=== PATIENT | female | born 1940 | race Caucasian/White ===

== ENCOUNTER 2017-12-11 14:44 | Inpatient (IN) | payer OTHER, MEDICAID ==
[~2017-12-11] VITALS: Ht 162.6 cm; Wt 69.0 kg
[2017-12-11 14:45] VITALS: BP 130/75
--- NOTE | 2017-12-11 14:48 | NUR ---
PATIENT PRESENTS TO ED WITH C/O LT. UPPER CHEST PACER MOVABLE WHEN PALPATED.IMPLANTED X10 YRS. AGO. NO OTHER COMPLAINTS. HX: TIA,ESRD,DIALYSIS NOT DONE TODAY. RT. ALEXEI CATH. FOR DIALYSIS.,ID,AT. FIB,ANEMIA,DM. PATIENT FROM [facility]. DENIES N/V/D; SKIN IS PINK/WARM/DRY; AAOX4 WITH EVEN AND STEADY GAIT; LUNGS CLEAR BL; HR EVEN AND REGULAR; PT DENIES ANY FEVER, CP, SOB, OR COUGH AT THIS TIME; PATIENT STATES PAIN OF 0/10 AT THIS TIME;PATIENT POSITIONED FOR COMFORT; HOB ELEVATED; BEDRAILS UP X2; BED DOWN. ER MD MADE AWARE OF PT STATUS.
[2017-12-11] MEDS ORDERED: SODIUM CHLORIDE FLUSH 10 ML SYR IVF ONE (16:20)
--- NOTE | 2017-12-11 16:34 | NUR ---
PT RESTING;NO ACUTE DISTRESS NOTED;WILL CONTINUE TO MONITOR PT.
[2017-12-11] MEDS ORDERED: LORazepam 2 MG/ML VIAL IVP ONE (16:55)
[2017-12-11 17:07] LABS: BASOPHILS % (AUTO) 0.4 % (0.0-2.0); EOSINOPHILS # (AUTO) 0.2 K/uL (0-0.4); EOSINOPHILS % (AUTO) 3.1 % (0.0-4.0); HEMOGLOBIN 12.5 g/dL (12.0-16.0); LYMPHOCYTES # (AUTO) 0.9 K/uL (2.5-16.5); LYMPHOCYTES % (AUTO) 15.9 % (20.5-51.1); MEAN CORPUSCULAR HEMOGLOBIN 29 pg (27-31); MEAN CORPUSCULAR HGB CONC 31 g/dL (33-37); MEAN CORPUSCULAR VOLUME 93.4 fL (80-94); MONOCYTES # (AUTO) 0.4 K/uL (0.8-1.0); MONOCYTES % (AUTO) 7.7 % (1.7-9.3); NEUTROPHILS % (AUTO) 72.9 % (42.2-75.2); PLATELET COUNT (AUTO) 198 K/uL (140-450); RED BLOOD CELL COUNT(AUTO) 4.28 MIL/uL (4.20-5.40); RED CELL DISTRIBUTION WIDTH 18.2 % (11.6-13.7); WHITE BLOOD COUNT (AUTO) 5.5 K/uL (4.8-10.8)
[2017-12-11 17:30] LABS: ANION GAP 12.8 (8-16); CARBON DIOXIDE 28.4 mmol/L (21-32); CHLORIDE 97 mmol/L (98-107); CREATININE 3.4 mg/dL (0.6-1.3); GLUCOSE 131 mg/dL (74-106); POTASSIUM 4.2 mmol/L (3.5-5.1); SODIUM SERUM 134 mmol/L (136-145); UREA NITROGEN, BLOOD 40 mg/dL (7-18)
[2017-12-11 17:33] LABS: PROTHROMBIN TIME 11.4 secs (10.8-13.4)
[2017-12-11 17:36] LABS: ALBUMIN 3.1 g/dL (3.4-5.0); ASPARTATE AMINOTRANSFERASE 12 U/L (15-37); TOTAL BILIRUBIN 0.8 mg/dL (0.0-1.0)
--- NOTE | 2017-12-11 18:13 | NUR ---
PT'S DAUGHTER CALLED;INFORMED HER ABOUT HER MOTHER'S CONDITION.
[2017-12-11] MEDS ORDERED: NACL 0.9% 500 ML IV SCH (18:28)
[2017-12-11 18:30] LABS: APPEARANCE,URINE CLEAR (CLEAR); BILIRUBIN,URINE NEGATIVE (NEGATIVE); BLOOD, URINE NEGATIVE (NEGATIVE); COLOR,URINE YELLOW (YELLOW); LEUKOCYTE ESTERASE ,URINE NEGATIVE (NEGATIVE); NITRITE, URINE NEGATIVE (NEGATIVE); UGLUCOSE NEGATIVE (NEGATIVE)
[2017-12-11] MEDS ORDERED: ACETAMINOPHEN 325 MG TAB PO PRN (18:30)
[2017-12-11] MEDS ORDERED: MORPHINE SULFATE 2 MG/ML SYR IVP PRN (18:30)
[2017-12-11] MEDS ORDERED: LORazepam 2 MG/ML VIAL IM/IVP PRN (18:30)
[2017-12-11] MEDS ORDERED: HYDROcodone/APAP 5/325 MG 1 TAB TAB PO PRN (18:30)
[2017-12-11] MEDS ORDERED: ONDANSETRON 4 MG/2 ML VIAL IM/IVP PRN (18:30)
[2017-12-11] MEDS ORDERED: ZOLPIDEM 5 MG TAB PO PRN (18:30)
[2017-12-11 19:50] VITALS: BP 121/71
--- NOTE | 2017-12-11 19:50 | NUR ---
Patient will be admitted to care of DR GRIFFITH. Admited to TELE. Will go to room 119-A. Belongings list completed. Report to ARIAN SAUNDERS.
--- NOTE | 2017-12-11 19:50 | NUR ---
ADMITTED A 77F FROM ER. CAME BY UMANG. AWAKE,ALERT, ORIENTED X4. WITH SLIGHT TRIBAL ON BOTH EARS. ON TELE MONITOR-ST/BBB/WITH PAC. ALSO HAS PACEMAKER. WHICH PT SAID MAYBE DISPLACED. HAS SACROCOCCYGEAL NON BLANCHABLE SKIN AREA AND LT ANDRADE ABRASION WITH DRESSING IN PLACED. ER NURSE TOOK PICTURE AND WILL BRING WHEN MD SIGNED ALREADY. PT IS ON HD ,ACCESS ON THE RT CHEST ALEXEI CATH . DRESSING CLEAN AND INTACT. HAS HL ON THE LT FA#22. FLUSHED WITH NS, CLEAR AND INTACT. PLAN OF CARE DISCUSSED AND PT VERBALIZED UNDERSTANDING. CALL LIGHT PLACED WITHIN EASY REACH. WILL CONITNUE TO MONITOR.
[2017-12-11 20:58] LABS: CHOL/HDL RATIO 2.8 (1-4.5); MAGNESIUM 2.4 mg/dL (1.8-2.4); PHOSPHORUS 4.9 mg/dL (2.5-4.9); THYROID STIMULATING HORMONE 3.74 uIU/mL (0.34-3.74)
--- NOTE | 2017-12-11 22:48 | NUR ---
PT FOR US ABDOMEN. CALLED RADIOLOGY AND SAID TECH STILL BUSY AT THIS TIME. TEST MIGHT BE DONE TOMORROW. WILL FOLLOW UP.
--- NOTE | 2017-12-12 00:10 | NUR ---
VITAL SIGNS TAKEN . STABLE. NO C/O ANY DISCOMFORT NOR PAIN NOTED. WILL CONTINUE TO MONITOR.
[2017-12-12 00:15] VITALS: BP 125/65
--- NOTE | 2017-12-12 02:00 | NUR ---
DR. CARDONA. MADE AWARE ABOUT TH SACRAL NON BLANCHABLE SKIN AND LT LOWER LEG ANDRADE ABRASION. WILL ORDER FNS AND WOUND CARE CONSULT AND TREATMENT.
[2017-12-12 02:16] LABS: BARBITURATE, URINE NEG. ng/ml (NEG <=200); BENZODIAZEPINE, URINE NEG. ng/mL (NEG <=200); CANNABINOID, URINE NEG. ng/mL (NEG <=50); COCAINE, URINE NEG. ng/mL (NEG <=300); OPIATE, URINE NEG. ng/mL (NEG <=2000); PHENCYCLIDINE SCREEN,URINE NEG. ng/mL (NEG <=25)
--- NOTE | 2017-12-12 03:15 | NUR ---
PT REQUESTED FOR SOMETHING TO EAT. HAD 1/2 SANDWICH AND JUICE.
[2017-12-12] MEDS ORDERED: DEXTROSE 50% 50 ML SYR IVP PRN (03:50)
[2017-12-12] MEDS ORDERED: INSULIN LISPRO SLIDING SCALE 100 UNITS/ML VIAL SUBQ PRN (03:50)
[2017-12-12 04:46] VITALS: BP 112/60
[2017-12-12] MEDS ORDERED: ALPOS OP (05:06)
[2017-12-12] MEDS ORDERED: VITD1000 PO (05:06)
[2017-12-12] MEDS ORDERED: LOVA40TA4 PO (05:06)
[2017-12-12] MEDS ORDERED: PANT40EC PO (05:06)
[2017-12-12] MEDS ORDERED: ASPI81EC98 PO (05:06)
[2017-12-12] MEDS ORDERED: XALOS OP (05:06)
[2017-12-12] MEDS ORDERED: FURO-570 PO (05:06)
--- NOTE | 2017-12-12 05:17 | NUR ---
ABLE TO TALKED TO RESIDENT. TO ORDER NEPHRO CONSULT FOR HD .
[2017-12-12] MEDS ORDERED: ALBUTEROL SULFATE/IPRATROPIU 3 ML SOL IH PRN (05:35)
[2017-12-12] MEDS: BLOOD GLUCOSE MONITORING 1 DEV DEV FS SCH ×4 (05:54→20:58)
--- NOTE | 2017-12-12 05:54 | NUR ---
BLOOD SUGAR WAS CHECKED THIS AM RESULT 155. PT REFUSED ANY INSULIN AT THIS TIME.
[2017-12-12] MEDS ORDERED: PANTOPRAZOLE 40 MG TABEC PO SCH (06:30)
--- NOTE | 2017-12-12 07:10 | NUR ---
ENDORSED PT IN STABLE CONDITION TO AM NURSE FOR CONTINUITY OF CARE.
--- NOTE | 2017-12-12 07:11 | NUR ---
RECEIVED REPORT FROM FARM IMPLEMENT ENGINE MECHANIC RN. PATIENT IS HARD OF HEARING, BUT AAOX4. EYES CLOSED AT THIS TIME BUT RESPONDS WHEN SPOKEN TO. HAS IF TO THE LEFT FA 22G, INFUSING NS AT 10 ML/HR. SITE IS CLEAN, DRY, PATENT AND INTACT. HAS ALEXEI CATH ON THE RIGHT UPPER CHEST. PATIENT IS CURRENTLY ON BEDREST. FALL RISK PRECAUTIONS IN PLACE. DISCUSSED PLAN OF CARE WITH PATIENT AND SHE VERBALIZED UNDERSTANDING. BED IN LOWEST POSITION, SIDE RAILS UP X2, CALL LIGHT WITHIN REACH. WILL CONTINUE TO MONITOR.
[2017-12-12 08:00] VITALS: BP 117/77
[2017-12-12] MEDS ORDERED: NON-FORMULARY ITEM (Lovastatin 40 MG) PO SCH (08:00)
[2017-12-12] MEDS: FUROSEMIDE 40 MG TAB PO SCH (08:29)
[2017-12-12] MEDS: ECOTRIN 81 MG TABEC PO SCH (08:29)
[2017-12-12] MEDS: CHOLECALCIFEROL 1,000 IU TAB PO SCH (08:29)
--- NOTE | 2017-12-12 08:36 | NUR ---
PATIENTS BLOOD SUGAR WAS 124, SHE STATED THAT SHE DOESN'T WANT THE LANTUS AT THIS TIME BECAUSE SHE FEELS LIKE HER BLOOD SUGAR IS TOO LOW.
[2017-12-12] MEDS: INSULIN LANTUS 100 UNITS/ML 10 ML VIAL SUBQ SCH (08:37)
[2017-12-12] MEDS ORDERED: Z-GUARD PASTE TP PRN (09:00)
[2017-12-12] MEDS: Z-GUARD PASTE TP SCH (09:46)
--- NOTE | 2017-12-12 10:19 | NUR ---
PATIENT HAS BEEN SCREENED AND CATEGORIZED HIGH NUTRITION RISK. PATIENT WILL BE SEEN WITHIN 1-2 DAYS OF ADMISSION. 12/12/17 12/13/[address]
[2017-12-12 10:54] LABS: BASOPHILS % (AUTO) 0.7 % (0.0-2.0); EOSINOPHILS # (AUTO) 0.2 K/uL (0-0.4); HEMATOCRIT 38.8 % (36-48); HEMOGLOBIN 12.3 g/dL (12.0-16.0); LYMPHOCYTES # (AUTO) 0.9 K/uL (2.5-16.5); LYMPHOCYTES % (AUTO) 15.5 % (20.5-51.1); MEAN CORPUSCULAR HEMOGLOBIN 30 pg (27-31); MEAN CORPUSCULAR HGB CONC 32 g/dL (33-37); MEAN CORPUSCULAR VOLUME 93.6 fL (80-94); MONOCYTES # (AUTO) 0.5 K/uL (0.8-1.0); MONOCYTES % (AUTO) 8.4 % (1.7-9.3); NEUTROPHILS # (AUTO) 4.1 K/uL (1.8-7.7); NEUTROPHILS % (AUTO) 72.4 % (42.2-75.2); PLATELET COUNT (AUTO) 200 K/uL (140-450); RED BLOOD CELL COUNT(AUTO) 4.15 MIL/uL (4.20-5.40); RED CELL DISTRIBUTION WIDTH 17.9 % (11.6-13.7); WHITE BLOOD COUNT (AUTO) 5.6 K/uL (4.8-10.8)
[2017-12-12 12:00] VITALS: BP 139/77
[2017-12-12 12:04] LABS: ANION GAP 13.9 (8-16); CARBON DIOXIDE 27.8 mmol/L (21-32); CHLORIDE 95 mmol/L (98-107); CREATININE 3.6 mg/dL (0.6-1.3); GLUCOSE 147 mg/dL (74-106); POTASSIUM 4.7 mmol/L (3.5-5.1); SODIUM SERUM 132 mmol/L (136-145); UREA NITROGEN, BLOOD 46 mg/dL (7-18)
--- NOTE | 2017-12-12 13:00 | NUR ---
PATIENT ON ROOM AIR, O2 SAT 99%. DENIES SOB. NO HHN INDICATED AT THIS TIME. NO RESPIRATORY DISTRESS NOTED AT THIS TIME. INSTRUCTED PATIENT ON USE OF INCENTIVE SPIROMETER. PATIENT PERFORMED RETURN DEMONSTRATION WITH FAIR EFFORT. WILL CONTINUE TO MONITOR.
[2017-12-12] MEDS: DOCUSATE SODIUM 100 MG GELCAP PO PRN (14:58)
--- NOTE | 2017-12-12 15:43 | NUR ---
Marine Firer Note: Per Cathy from [facility] , patient has been living at their facility since Feb 2017.
--- NOTE | 2017-12-12 15:50 | NUR ---
12/12/17 RD INITIAL ASSESSMENT COMPLETED PLEASE REFER TO NUTRITION ASSESSMENT UNDER CARE ACTIVITY FOR ESTIMATED NUTRITIONAL NEEDS. 1. RECOMMEND CCHO, RENAL, AND CARDIAC DIET, TOLERATED. 2. RECOMMEND MUNIR QD 3. RD TO FOLLOW-UP 3-5 DAYS, MODERATE RISK KIMBERLY BARRERA, RD
[2017-12-12 16:00] VITALS: BP 109/67
[2017-12-12] MEDS ORDERED: GLYCERIN ADULT 1 SUPP RC PRN (16:05)
--- NOTE | 2017-12-12 19:24 | NUR ---
ENDORSED PATIENT TO OCCUPATIONAL THERAPY TECHNICIAN RN FOR CONTINUITY OF CARE. PATIENT IN STABLE CONDITION.
--- NOTE | 2017-12-12 19:25 | NUR ---
RECEIVED PT IN STABLE CONDITION FROM AM NURSE. PT STILL EATING DINNER. NO C/O ANY DISCOMFORT NOR PAIN NOTED. ON BED REST. TELEMETRY PT. WITH IV ACCESS ON THE LT WRIST G#22. CLEAR AND PATENT. ON BEDREST DUE TO GENERALIZED WEAKNESS. HAS RT UPPER CHEST ALEXEI CATHETER FOR HD. FOR DIALYSIS TONIGHT. PT ALREADY SIGNED CONSENT . HAS SACRAL EXCORIATION AND LT LOWER LEG ANDRADE LACERATION WITH DRESSING INTACT. BED ON LOW POSITION. SIDE RAILS UP X2. CALL LIGHT PLACED WITHIN EASY REACH. WILL CONITNUE TO MONITOR.
[2017-12-12 20:00] VITALS: BP 135/60
--- NOTE | 2017-12-12 20:00 | NUR ---
HD NURSE JUST CAME IN TO DO DIALYSIS ON PT. GAVE COPY OF ORDER AND CBC CMP RESULTS. 2 NS IL BAG GIVEN PER HD REQUEST TO BE USE DURING HD.
--- NOTE | 2017-12-12 20:58 | NUR ---
BLOOD SUGAR WAS CHECKED RESULT 161. PT REFUSED TO HAVE ANY INSULIN AT THIS TIME. SHE SAID HER BS TEND TO GO DOWN IN AM. WILL HAVE MD AWARE.
--- NOTE | 2017-12-12 22:00 | NUR ---
HD STILL GOING ON . PT IN STABLE CONDITION.
--- NOTE | 2017-12-12 23:10 | NUR ---
HD JUST FINISHED. OUTPUT 2500 ML PER HD NURSE. PT IN STABLE CONDITION.
[2017-12-13] MEDS: LATANOPROST 0.005% OP 2.5 ML BTL LEFT EYE SCH ×2 (00:02→20:47)
[2017-12-13 00:07] VITALS: BP 129/68
--- NOTE | 2017-12-13 01:30 | NUR ---
MADE ROUNDS. PT ASLEEP. NO S/S OF ANY DISCOMFORT NOR PAIN NOTED.
--- NOTE | 2017-12-13 02:30 | NUR ---
MADE ROUNDS. S;EEPING WELL. NO DISTRESS NOR DISCOMFORT NOTED. WILL CONTINUE TO MONITOR.
--- NOTE | 2017-12-13 04:00 | NUR ---
PT HAD A SMALL AMOUNT SOFT BM AND VOIDED . CLEANED PERINEAL AREA, KEPT DRY AND APPLIED Z GUARD TO SACRAL AREA.
[2017-12-13 04:15] VITALS: BP 113/61
[2017-12-13] MEDS: BLOOD GLUCOSE MONITORING 1 DEV DEV FS SCH ×4 (05:15→20:52)
--- NOTE | 2017-12-13 05:15 | NUR ---
BLOOD SUGAR WAS CHECKED THIS AM RESULT 102.
[2017-12-13 06:26] LABS: T4 (THYROXINE) 7.1 ug/dL (4.5-12.0)
--- NOTE | 2017-12-13 07:10 | NUR ---
ENDORSED PT IN STABLE CONDITION TO AM NURSE FOR CONTINUITY OF CARE.
--- NOTE | 2017-12-13 07:11 | NUR ---
RECEIVED REPORT FROM THE WILDLAND FIREFIGHTER NURSE AT BEDSIDE FOR CONTINUITY OF CARE. PT IS AWAKE AND ORIENTED. INTRODUCED MYSELF AND UPDATED THE BOARD. PT IS HAS HER HEAD COVERED WITH A BLANKET. WILL COME BACK AND ASSESS PT.
[2017-12-13 07:29] LABS: BASOPHILS % (AUTO) 0.8 % (0.0-2.0); EOSINOPHILS # (AUTO) 0.2 K/uL (0-0.4); EOSINOPHILS % (AUTO) 3.9 % (0.0-4.0); HEMATOCRIT 36.2 % (36-48); HEMOGLOBIN 11.5 g/dL (12.0-16.0); LYMPHOCYTES # (AUTO) 0.9 K/uL (2.5-16.5); LYMPHOCYTES % (AUTO) 16.5 % (20.5-51.1); MEAN CORPUSCULAR HEMOGLOBIN 30 pg (27-31); MEAN CORPUSCULAR HGB CONC 32 g/dL (33-37); MEAN CORPUSCULAR VOLUME 93.3 fL (80-94); MONOCYTES # (AUTO) 0.6 K/uL (0.8-1.0); MONOCYTES % (AUTO) 11.5 % (1.7-9.3); NEUTROPHILS # (AUTO) 3.5 K/uL (1.8-7.7); NEUTROPHILS % (AUTO) 67.3 % (42.2-75.2); PLATELET COUNT (AUTO) 194 K/uL (140-450); RED BLOOD CELL COUNT(AUTO) 3.88 MIL/uL (4.20-5.40); RED CELL DISTRIBUTION WIDTH 17.7 % (11.6-13.7); WHITE BLOOD COUNT (AUTO) 5.2 K/uL (4.8-10.8)
--- NOTE | 2017-12-13 07:40 | NUR ---
V/S WITHIN NORMAL RANGE. PT ASKS FOR JUICE. FELT LIKE THER BS WAS TOO LOW. LAST BS CHECK 102 PER FISHING BOAT CAPTAIN NURSE. DRYNESS/EXCORIATION ON SACRAL COCCYX AREA. ZGUARD IS APPLIED. R UPPER CHEST ALEXEI CATH FOR HD. L ANDRADE ABRASION, DRESSING IN PLACE. L WRIST 22G SL. PER MD, PT IS AWAITING CARDIOLOGY CONSULT WITH DR. DA SILVA. ONCE SHE IS CLEARED, SHE CAN BE D/C HOME. MOST LIKELY OVER THE WEEKEND. WILL CONTINUE TO MONITOR PT.
[2017-12-13 07:51] LABS: ANION GAP 14.1 (8-16); CARBON DIOXIDE 27.6 mmol/L (21-32); CHLORIDE 96 mmol/L (98-107); CREATININE 2.6 mg/dL (0.6-1.3); GLUCOSE 107 mg/dL (74-106); POTASSIUM 3.7 mmol/L (3.5-5.1); SODIUM SERUM 134 mmol/L (136-145); UREA NITROGEN, BLOOD 27 mg/dL (7-18)
[2017-12-13 08:00] VITALS: BP 112/69
[2017-12-13 08:10] LABS: MAGNESIUM 1.9 mg/dL (1.8-2.4); PHOSPHORUS 3.9 mg/dL (2.5-4.9)
[2017-12-13] MEDS: ECOTRIN 81 MG TABEC PO SCH (08:44)
[2017-12-13] MEDS: CHOLECALCIFEROL 1,000 IU TAB PO SCH (08:44)
[2017-12-13] MEDS: FUROSEMIDE 40 MG TAB PO SCH (08:44)
[2017-12-13] MEDS: Z-GUARD PASTE TP SCH (08:46)
[2017-12-13] MEDS: INSULIN LANTUS 100 UNITS/ML 10 ML VIAL SUBQ SCH (08:47)
--- NOTE | 2017-12-13 08:49 | NUR ---
ADMINISTERED MORNING MEDS. HELD LANTUS D/T DECREASE IN BS 102. PT ALSO STATED THAT SHE DOES NOT WANT INSULIN WHEN HER BS IS LESS THAN 200. PT TOLERATED WELL. WILL CONTINUE TO MONITOR PT.
--- NOTE | 2017-12-13 09:18 | NUR ---
ADMINISTERED MORNING MEDS. PT TOLERATED WELL. NOW EATING BREAKFAST. NO SIGNS OF DISTRESS. NO COMPLAINTS. DAUGHTER AT BEDSIDE. WILL CONTINUE TO MONITOR PT.
--- NOTE | 2017-12-13 09:22 | NUR ---
Ground Instructor Basic Note: I faxed patient's clinical information to [facility], phone number
--- NOTE | 2017-12-13 11:17 | NUR ---
Transverse Abdominal Muscle Surgeon Note: Per Cathy from [facility], phone number , patient can return to room 123A over weekend after 3pm, accepting physician is , protective services case worker Cici pham. Per protective services case worker Cici, patient is not on isolation.
[2017-12-13] MEDS: BRIMONIDINE TARTRATE 0.2% OP 5 ML BTL LEFT EYE SCH ×2 (11:23→20:47)
--- NOTE | 2017-12-13 11:32 | NUR ---
ADMINISTERED EYE DROP AND GLUCOSE CHECK. BS AT 124. NO COVERAGE NEEDED. PT TOLERATED WELL. WILL CONTINUE TO MONITOR PT.
[2017-12-13 13:53] VITALS: BP 111/57
--- NOTE | 2017-12-13 14:07 | NUR ---
PT SITTING UP IN BED. REMOVED HER LUNCH TRAY. ATE 50% OF HER LUNCH. NO SIGNS OF DISTRESS. RESTING COMFORTABLY. WILL CONTINUE TO MONITOR PT.
--- NOTE | 2017-12-13 14:43 | NUR ---
PT REQUESTED A BATH BATH. INSPECTOR PLATING WILL GIVE HER ONE. PT PULLED UP IN BED AND CHANGED PAD. PT URINATED.
[2017-12-13 16:00] VITALS: BP_SYST 110; BP_SYST 111; BP_DIAS 63; BP_DIAS 66
--- NOTE | 2017-12-13 16:30 | NUR ---
DR. DA SILVA HERE TO SEE PT FOR CARDIOLOGY CONSULT.
--- NOTE | 2017-12-13 19:15 | NUR ---
ENDORSE PT TO THE RETORT ENGINEER NURSE AT BEDSIDE FOR CONTINUITY OF CARE. PT IS IN STABLE CONDITION. PAGED YUSRA, DIALYSIS NURSE FOR POSSIBLE HD TONIGHT. PT IS UNCOMFORTABLE AND THERE WAS AN ORDER FOR HD FOR TODAY.
--- NOTE | 2017-12-13 19:16 | NUR ---
RECEIVED PT ON BED, AAOX4, VITAL SIGNS STABLE, ST ON TELE, ASYMPTOMATIC, DENIES ANY PAIN, NO SOB NOTED, RT CHEST ALEXEI CATH IN PLACE, DRESSING DRY AND INTACT, PLAN OF CARE DISCUSSED, SAFETY MEASURES IN PLACE, SIDE RAILS UP AND BED ALARM ON, MAINTAIN ON CONTACT ISOLATION, CALL LIGHT WITHIN REACTION.
--- NOTE | 2017-12-13 19:20 | NUR ---
CALLED YUSRA, HOME HEALTH TRAVEL PT. ASKED IF ONE OF HER NURSES CAN COME TONIGHT FOR DIALYSIS. TOO LATE. ALL RN'S ARE GONE. NEED TO CALL ORDERING DR AND EXPLAIN AND SEE IF WE CAN DO IT TOMORROW. CALLED AND PAGED DR. ALLAN MARSH, AIR TRAFFIC INSTRUCTOR DR. PAGAN PER TO DIALYZE PT FIRST THING TOMORROW MORNING. NOTIFIED YUSRA AND SHE WILL SEND RN IN THE MORNING.
[2017-12-13 20:00] VITALS: BP 101/61
[2017-12-13] MEDS: CHLORHEXADINE GLUC 2% CLOTH TP SCH (20:46)
[2017-12-13] MEDS: MUPIROCIN CA NASAL 2% 1GM TUBE NS SCH (20:46)
--- NOTE | 2017-12-13 21:00 | NUR ---
BLOOD SUGAR CHECKED WITH 153 RESULT, REFUSED INSULIN COVERAGE, RISK AND BENEFITS EXPLAINED BUT STILL REFUSING, DUE MEDS ADMINISTERED, ALL NEEDS ATTENDED.
[2017-12-13] MEDS: DOCUSATE SODIUM 100 MG GELCAP PO PRN (21:54)
[2017-12-14] VITALS: BP 113/71
--- NOTE | 2017-12-14 02:45 | NUR ---
PT INCONTINENT OF URINE, SMALL BM NOTED, PERINEAL CARE DONE, REPOSITIONED AND OFFLOAD PRESSURE AREA, MONITORED CLOSELY.
[2017-12-14 04:00] VITALS: BP 98/56
--- NOTE | 2017-12-14 04:20 | NUR ---
PT SLEEPING, AROUSABLE, VITAL SIGNS STABLE, DENIES PAIN, NO SOB NOTED, MONITORED CLOSELY.
--- NOTE | 2017-12-14 05:50 | NUR ---
BLOOD SUGAR CHECKED WITH 110 RESULT, NO COVERAGE NEEDED, NO DISTRESS NOTED, FOR HEMODIALYSIS TODAY, MONITORED CLOSELY.
[2017-12-14] MEDS: BLOOD GLUCOSE MONITORING 1 DEV DEV FS SCH ×4 (06:38→20:39)
[2017-12-14 07:10] LABS: BASOPHILS % (AUTO) 0.6 % (0.0-2.0); EOSINOPHILS # (AUTO) 0.2 K/uL (0-0.4); EOSINOPHILS % (AUTO) 2.7 % (0.0-4.0); HEMATOCRIT 33.3 % (36-48); HEMOGLOBIN 10.7 g/dL (12.0-16.0); LYMPHOCYTES % (AUTO) 17.1 % (20.5-51.1); MEAN CORPUSCULAR HEMOGLOBIN 30 pg (27-31); MEAN CORPUSCULAR HGB CONC 32 g/dL (33-37); MEAN CORPUSCULAR VOLUME 92.4 fL (80-94); MONOCYTES # (AUTO) 0.6 K/uL (0.8-1.0); NEUTROPHILS % (AUTO) 69.6 % (42.2-75.2); PLATELET COUNT (AUTO) 193 K/uL (140-450); RED CELL DISTRIBUTION WIDTH 17.2 % (11.6-13.7); WHITE BLOOD COUNT (AUTO) 5.8 K/uL (4.8-10.8)
--- NOTE | 2017-12-14 07:15 | NUR ---
PT SLEEPING, NO SIGNS OF DISTRESS, REPORT GIVEN TO ARIAN AUSTIN FOR CONTINUITY OF CARE.
--- NOTE | 2017-12-14 07:16 | NUR ---
RECEIVED REPORT FROM THE BUS AND SYS INTEGRATION SENIOR MANAGER NURSE AT BEDSIDE FOR CONTINUITY OF CARE. PT IS ASLEEP. WILL BE BACK TO ASSESS PT.
--- NOTE | 2017-12-14 07:30 | NUR ---
WOKE UP PT FOR V/S. V/S WITHIN NORMAL RANGE. O2 AT 97%. C/O SOME NAUSEA AND FEELS FULL. REFUSED BREAKFAST. WILL HOLD. NOTIFIED HER THAT ONCE SHE HAS DIALYSIS, SHE WILL START FEELING BETTER. IV L WRIST 22GSL. R U CHEST ALEXEI CATH. SKIN- DISCOLORATION ON BLE AND DRY HEELS, EXCORIATION ON SACRAL, AND L ANDRADE ABRASION FROM TAPE. WILL CONTINUE TO MONITOR PT.
[2017-12-14 08:00] VITALS: BP_SYST 118; BP_SYST 97; BP_DIAS 47; BP_DIAS 72
[2017-12-14 08:35] LABS: ANION GAP 14.7 (8-16); CARBON DIOXIDE 25.6 mmol/L (21-32); CHLORIDE 95 mmol/L (98-107); CREATININE 3.2 mg/dL (0.6-1.3); GLUCOSE 105 mg/dL (74-106); POTASSIUM 4.3 mmol/L (3.5-5.1); SODIUM SERUM 131 mmol/L (136-145); UREA NITROGEN, BLOOD 37 mg/dL (7-18)
[2017-12-14 08:38] LABS: MAGNESIUM 1.8 mg/dL (1.8-2.4); PHOSPHORUS 4.8 mg/dL (2.5-4.9)
--- NOTE | 2017-12-14 08:45 | NUR ---
DIALYSIS NURSE IS HERE TO START HER TX. GAVE RN COPY OF ORDERS, LABS, AND 2 BAGS OF NORMAL SALINE. RN AT BEDSIDE. WILL CONTINUE TO MONITOR PT.
[2017-12-14] MEDS: ECOTRIN 81 MG TABEC PO SCH (08:54)
[2017-12-14] MEDS: BRIMONIDINE TARTRATE 0.2% OP 5 ML BTL LEFT EYE SCH ×2 (08:54→20:35)
[2017-12-14] MEDS: CHOLECALCIFEROL 1,000 IU TAB PO SCH (08:54)
[2017-12-14] MEDS: INSULIN LANTUS 100 UNITS/ML 10 ML VIAL SUBQ SCH (08:55)
[2017-12-14] MEDS: FUROSEMIDE 40 MG TAB PO SCH (08:55)
[2017-12-14] MEDS: Z-GUARD PASTE TP SCH (08:56)
--- NOTE | 2017-12-14 08:59 | NUR ---
ADMINISTERED MORNING MEDS. HELD LANTUS D/T LOW BS 110. AND LASIX D/T DIALYSIS. PT TOLERATED WELL. WILL CONTINUE TO MONITOR PT. WILL CONTINUE TO MONITOR PT.
--- NOTE | 2017-12-14 09:16 | NUR ---
RECEIVED PATIENT ON ROOM AIR, O2 SAT 95%. PATIENT RECEIVING DIALYSIS AT THIS TIME. DENIES SOB. BREATH SOUNDS CLEAR BILATERALLY. NO HHN GIVEN AT THIS TIME, BREATHING TREATMENT NOT INDICATED. NO RESPIRATORY DISTRESS NOTED. WILL CONTINUE TO MONITOR.
[2017-12-14] MEDS ORDERED: ALBUMIN HUMAN 25% 100 ML IV ONE (09:20)
[2017-12-14] MEDS ORDERED: ALBUMIN HUMAN 25% 200 ML IV SCH (09:38)
--- NOTE | 2017-12-14 10:00 | NUR ---
GAVE 2 BOTTLES OF ALBUMIN TO DIALYSIS NURSE TO BE ADMINISTERED DURING DIALYSIS FOR LOW BP.
--- NOTE | 2017-12-14 11:55 | NUR ---
DIALYSIS IS DONE. TOTAL 2L TAKEN OUT. V/S STABLE. PT IN STABLE CONDITION. WILL CONTINUE TO MONITOR PT.
[2017-12-14 12:00] VITALS: BP 97/47
--- NOTE | 2017-12-14 13:30 | NUR ---
FISH AGAIN FOR LUNCH. PT REQUESTED A TURKEY SANDWICH. WILL CALL [facility] TO BRING UP TURKEY SANDWICH FOR PT.
--- NOTE | 2017-12-14 13:49 | NUR ---
DR. LAW CAME BY TO SEE PT. NOTED NO LABS THIS MORNING. PER MD, HE ORDERED IT. CALLED LAB TO DO LABS STAT. ACTUAL ORDER WAS ROUTINE. NASIM SAID HE WILL COME NOW. ADMINISTERED REGLAN REQUESTED BY . PER MD, IT SHOULD ROUND THE CLOCK SCHEDULED EVEN IF THERE IS NO NAUSEA. PT TOLERATED WELL. WILL START SMALL AMOUNTS OF CRACKERS AND JELLO Q EVERY HOUR TO SEE IF SHE TOLERATES FOOD. IF NOT NAUSEATED, BY END OF END, POSSIBLY GET A CLEAR DIET TRAY. ENCOURAGED PT TO AMBULATE AND SIT. WILL CONTINUE TO MONITOR PT. Addendum: 12/14/17 at 1424 by Marguerite Ocampo RN WRONG PT. PLEASE DISREGARD.
--- NOTE | 2017-12-14 15:30 | NUR ---
PT SLEEPING SOUNDLY NO SIGNS OF DISTRESS. WILL CONTINUE TO MONITOR PT.
[2017-12-14 16:00] VITALS: BP 110/63
--- NOTE | 2017-12-14 18:27 | NUR ---
PT SITTING UP. EATING DINNER. PT IS "DOING FINE", WATCHING TV. WILL CONTINUE TO MONITOR PT.
--- NOTE | 2017-12-14 19:29 | NUR ---
ENDORSED PT TO THE CAPTAIN CANNERY TENDER NURSE AT BEDSIDE FOR CONTINUITY OF CARE. PT IS IN STABLE CONDITION.
--- NOTE | 2017-12-14 19:30 | NUR ---
RECEIVED PT AWAKE ON BED, AAOX4, VITAL SIGNS STABLE, DENIES ANY PAIN, NO SOB NOTED, RT CHEST ALEXEI CATH IN PLACE, DRESSING DRY AND INTACT, PLAN OF CARE DISCUSSED, SAFETY MEASURES IN PLACE, SIDE RAILS UP AND BED ALARM ON, MAINTAIN ON CONTACT ISOLATION, CALL LIGHT WITHIN REACH.
[2017-12-14 20:00] VITALS: BP 98/54
[2017-12-14] MEDS: LATANOPROST 0.005% OP 2.5 ML BTL LEFT EYE SCH (20:36)
[2017-12-14] MEDS: MUPIROCIN CA NASAL 2% 1GM TUBE NS SCH (20:38)
[2017-12-14] MEDS: CHLORHEXADINE GLUC 2% CLOTH TP SCH (20:38)
--- NOTE | 2017-12-14 20:50 | NUR ---
BLOOD SUGAR CHECKED WITH 134 RESULT, NO COVERAGE NEEDED, DUE MEDS ADMINISTERED, REPOSITIONED AND OFFLOAD PRESSURES AREAS, ALL NEEDS ATTENDED.
[2017-12-15] VITALS: BP 101/57
--- NOTE | 2017-12-15 | NUR ---
PT SLEEPING, EASILY AROUSABLE, VITAL SIGNS STABLE, DENIES PAIN AND NO SOB NOTED, CONTINUE TO MONITOR CLOSELY.
[2017-12-15 04:00] VITALS: BP 107/57
--- NOTE | 2017-12-15 05:40 | NUR ---
BLOOD SUGAR CHECKED WITH 102 RESULT, PER PT THAT IS LOW FOR HER, EDUCATED ABOUT NORMAL LEVEL OF BLOOD GLUCOSE, PER HER PRIMARY DOCTOR IN [place] SHE NEEDS TO MAINTAIN HER SUGAR ABOVE 135, REQUESTING JUICE, PROVIDED WITH CRANBERRY JUICE X1, MONITORED CLOSELY.
[2017-12-15] MEDS: BLOOD GLUCOSE MONITORING 1 DEV DEV FS SCH ×4 (06:44→20:59)
--- NOTE | 2017-12-15 07:12 | NUR ---
PT AWAKE, NO SIGNS OF DISTRESS, REPORT GIVEN TO RN SITAL FOR CONTINUITY OF CARE.
--- NOTE | 2017-12-15 07:25 | NUR ---
RECEIVED REPORT FROM PM NURSE FOR AT HER BEDSIDE. PT AWAKE AND LYING DOWN IN HER LATERAL POSITION ON HER RT SIDE. NO SIGN OF DISTRESS NOTED. INTRODUCED SELF AND UPDATED HER BOARD. HAS IV ON HER LFT WRIST 22G. PT ADMITTED WITH DX OF CHF AND CHIEF COMPLAIN OF DISLODGEMENT OF HER PACEMAKER. 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 BED AT LOWER POSITION, CALLLIGHT WITHIN REACH. ASKED PT TO USE CALL TO ASK FOR ANY HELP.WILLCONTINUE TO MONITOR THE PT.
[2017-12-15 07:56] LABS: BASOPHILS % (AUTO) 0.7 % (0.0-2.0); EOSINOPHILS # (AUTO) 0.2 K/uL (0-0.4); HEMATOCRIT 34.3 % (36-48); HEMOGLOBIN 11.1 g/dL (12.0-16.0); LYMPHOCYTES # (AUTO) 0.8 K/uL (2.5-16.5); LYMPHOCYTES % (AUTO) 14.8 % (20.5-51.1); MEAN CORPUSCULAR HEMOGLOBIN 30 pg (27-31); MEAN CORPUSCULAR HGB CONC 32 g/dL (33-37); MEAN CORPUSCULAR VOLUME 93.2 fL (80-94); MONOCYTES # (AUTO) 0.6 K/uL (0.8-1.0); MONOCYTES % (AUTO) 10.9 % (1.7-9.3); NEUTROPHILS # (AUTO) 3.8 K/uL (1.8-7.7); NEUTROPHILS % (AUTO) 70.6 % (42.2-75.2); PLATELET COUNT (AUTO) 210 K/uL (140-450); RED BLOOD CELL COUNT(AUTO) 3.68 MIL/uL (4.20-5.40); RED CELL DISTRIBUTION WIDTH 17.7 % (11.6-13.7); WHITE BLOOD COUNT (AUTO) 5.3 K/uL (4.8-10.8)
[2017-12-15 08:00] VITALS: BP 109/61
[2017-12-15 08:03] LABS: ALBUMIN 3.1 g/dL (3.4-5.0); ANION GAP 13.7 (8-16); ASPARTATE AMINOTRANSFERASE 10 U/L (15-37); CARBON DIOXIDE 27.8 mmol/L (21-32); CHLORIDE 95 mmol/L (98-107); CREATININE 2.6 mg/dL (0.6-1.3); GLUCOSE 118 mg/dL (74-106); MAGNESIUM 1.8 mg/dL (1.8-2.4); POTASSIUM 3.5 mmol/L (3.5-5.1); SODIUM SERUM 133 mmol/L (136-145); TOTAL BILIRUBIN 0.8 mg/dL (0.0-1.0); UREA NITROGEN, BLOOD 27 mg/dL (7-18)
[2017-12-15] MEDS: BRIMONIDINE TARTRATE 0.2% OP 5 ML BTL LEFT EYE SCH ×2 (08:55→20:55)
[2017-12-15] MEDS: FUROSEMIDE 40 MG TAB PO SCH (08:55)
[2017-12-15] MEDS: CHOLECALCIFEROL 1,000 IU TAB PO SCH (08:56)
[2017-12-15] MEDS: ECOTRIN 81 MG TABEC PO SCH (08:56)
[2017-12-15] MEDS: INSULIN LANTUS 100 UNITS/ML 10 ML VIAL SUBQ SCH (09:00)
--- NOTE | 2017-12-15 09:10 | NUR ---
ADMINISTERED MEDS ORDERED TO PT. PT CALM AND COOPERATIVE.NO SIGN OF DISTRESS. REFUSED HE LANTUS, STATES THAT IT WILL DROP HER BS BS OF NOW IS 143 THIS MORNING. AND SHE DON'T WANT TO WAKE UP IN NIGHT AND TAKE SOME SUGAR. INFORMED THAT IT'S LONG ACTING , WILL HELP TO CONTROL BLOOD SUGAR IN LONG TIME, LATER IN NIGHT IF BS GOES UP, STILL DENIES. LANTUS WAS HOLD. EXPLAINED OTHER MEDS TO PT.VERBALIZED UNDERSTANDING. BED IN LOWER POSITION, PT IN RT LATERAL POSITION RELATED TO HER EXCORIATION ON SACRAL REGION. PT STATES SHE IS COMFORTABLE. WILL CONTINUE TO MONITOR THE PT.
[2017-12-15] MEDS: Z-GUARD PASTE TP SCH (10:00)
--- NOTE | 2017-12-15 10:35 | NUR ---
CHECKED ON PT. SLEEPING AT THIS TIME.WILL CONTINUE TO MONITOR THE PT.
--- NOTE | 2017-12-15 11:27 | NUR ---
CHECKED ON PT. LYING ON HER LFT SIDE. ASKED TO RAISE THE HOB AND BRING THE CYLINDER BLOCK HOLE RELINER NEAR TO HER. NO SIGN OF DISTRESS. PT STATES THAT DOC INFORMED THAT SHE WILL BE DISCHARGED TODAY. INFORMED THAT WILL LET HER KNOW ONCE I GET THE DC ORDER.WILL CONTINUE TO MONITOR PT.
--- NOTE | 2017-12-15 11:45 | NUR ---
STUDENT NURSE TOOK TH BS ON PT. BS 198. INFORMED PT THAT HER BS IS 198 AND WILL NEED 2 UNITS OF HUMALOG PER SLIDING SCALE. PT STATES SHE DOESN'T WANT INSULIN,WILL DROP HER BLOOD SUGAR. WILL NOTIFY DOCTOR.
[2017-12-15 12:00] VITALS: BP 124/69
--- NOTE | 2017-12-15 12:37 | NUR ---
GOT CALL FROM [facility] FROM NURSE JANETT.ASKING ABOUT DC OF PT. INFORMED THAT PT WILL BE DC PER RESIDENT, NO DC ORDER YET. ASKED ME TO CALL HER SOON DC ORDERS ARE GIVEN.WAITING ON DISCHARGE ORDER. # [phone].
[2017-12-15] MEDS ORDERED: PNEUMOCOCCAL VACCINE 23 MCG/0.5 ML VIAL IMVAC SCH (13:00)
--- NOTE | 2017-12-15 14:30 | NUR ---
ADMINISTERED PNA VACCINE TO PT ON SUBCUTANEOUSLY ON HER LLQ. PT TOLERATED WELL. PT STATES THAT SHE IS NOT ALLERGIC TO ANY COMPONENT OF THE VACCINE. WILLCONTINUE TO MONITOR THE PT.
--- NOTE | 2017-12-15 15:30 | NUR ---
CALLED [facility] TO GIVE THE REPORT TO NURSE. REPORT GIVEN TO CHETAN DE ANDA OF [facility] [phone]. GAVE FULL REPORT AND GAVE CALLBACK NUMBER FOR ANY QUESTION.VERBALIZED UNDERSTANDING. CALLED HER AGAIN , INFORMED ABOUT THE CHANGE OF SPECIAL DISTRIBUTION CLERK TIME FROM 1600 TO 1900.
[2017-12-15 16:00] VITALS: BP 102/58
--- NOTE | 2017-12-15 16:30 | NUR ---
PT BS 156.INFORMED THAT PT NEEDS 2 UNITS OF INSULIN ON SLIDING SCALE.PT REFUSED INSULIN.
--- NOTE | 2017-12-15 18:00 | NUR ---
CHECKED ON PT. PT WAITING FOR THE TRANSPORT TO GO TO [facility]. WILL CONTINUE TO MONITOR PT.
--- NOTE | 2017-12-15 19:10 | NUR ---
ENDORSED PT TO PM NURSE. PT HAS SIGNED ALL DC PAPER. GIVEN REPORT IN DC FOLDER. ENDORSED THE DC PAPER TO PM NURSE. WAITING FOR THE TRANSPORT.PT HAS ALL HER BELONGINGS ON HER BEDSIDE. PT IN STABLE CONDITION.
--- NOTE | 2017-12-15 19:30 | NUR ---
STANLEY FROM [facility] CALLED AND SAID THAT THEY ARE BACKLOGGED THAT THEY CAN BULKER THE PT IN 3 MORE HOURS, PT MADE AWARE, PT GOT UPSET AND STARTED CRYING, TOLD PT THAT I [facility] FOR ANY [facility]PDATES, REPOSITIONED AND OFFLOAD PRESSURE AREAS.
[2017-12-15 20:00] VITALS: BP 100/60
[2017-12-15] MEDS: LATANOPROST 0.005% OP 2.5 ML BTL LEFT EYE SCH (20:57)
[2017-12-15] MEDS: CHLORHEXADINE GLUC 2% CLOTH TP SCH (20:59)
[2017-12-15] MEDS: MUPIROCIN CA NASAL 2% 1GM TUBE NS SCH (20:59)
--- NOTE | 2017-12-15 21:57 | NUR ---
KRISTI LOFTON CALLED [facility], TALKED TO STANLEY AND SAID IT'S ABOUT 2 MORE HOURS, PT MADE AWARE, PT VERY UPSET STARTED THROWING PILLOW AND OTHER THINGS ON THE FLOOR, TRIED TO OFFER SNACK OR TO REPOSITION SO SHE CAN BE MORE COMFORTABLE BUT PT STATED "JUST GO LEAVE ME ALONE", SIDE RAILS UP AND BED ALARM ON, CALL LIGHT WITHIN REACH.
--- NOTE | 2017-12-15 22:04 | NUR ---
CALLED [facility] AND SPOKE TO ADILSON ABOUT STEAM AND POWER SUPERINTENDENT ETA AT 0000.
--- NOTE | 2017-12-16 00:31 | NUR ---
[facility] HERE, DC INSTRUCTIONS GIVEN BY AM NURSE VALERIA, DC PAPERS SIGNED BY PT EARLIER, IV DISCONTINUED WITH CANNULA INTACT, ARM BANDS REMOVED, ASSISTED TO WHEELCHAIR, DISCHARGE TO [facility] IN STABLE CONDITION.
== END 2017-12-16 00:30 | DRG 291 ==
LOC: MED 14:44 → MTU 18:28
PROVIDERS: ADMIT General Practice; ATTEND General Practice
PROC: 5A1D70Z Performance of Urinary Filtration, Intermittent, Less than 6 Hours Per Day (ICD-10-PCS; principal; 2017-12-12)
PROC: 5A1D70Z Performance of Urinary Filtration, Intermittent, Less than 6 Hours Per Day (ICD-10-PCS; 2017-12-14)
PROC: 5A1D70Z Performance of Urinary Filtration, Intermittent, Less than 6 Hours Per Day (ICD-10-PCS; 2017-12-14)
DX: I13.2 Hypertensive heart and chronic kidney disease with heart failure and with stage 5 chronic kidney disease, or end stage renal disease (principal); I50.43 Acute on chronic combined systolic (congestive) and diastolic (congestive) heart failure; N18.6 End stage renal disease; N17.0 Acute kidney failure with tubular necrosis; E44.0 Moderate protein-calorie malnutrition; E87.1 Hypo-osmolality and hyponatremia; D68.59 Other primary thrombophilia; E11.22 Type 2 diabetes mellitus with diabetic chronic kidney disease; R74.0 Nonspecific elevation of levels of transaminase and lactic acid dehydrogenase [LDH]; E87.8 Other disorders of electrolyte and fluid balance, not elsewhere classified; L98.9 Disorder of the skin and subcutaneous tissue, unspecified; I48.91 Unspecified atrial fibrillation; I07.1 Rheumatic tricuspid insufficiency; J45.909 Unspecified asthma, uncomplicated; E11.51 Type 2 diabetes mellitus with diabetic peripheral angiopathy without gangrene; E78.5 Hyperlipidemia, unspecified; D63.8 Anemia in other chronic diseases classified elsewhere; H40.9 Unspecified glaucoma; E87.70 Fluid overload, unspecified; I25.10 Atherosclerotic heart disease of native coronary artery without angina pectoris; I27.21 Secondary pulmonary arterial hypertension; Z88.8 Allergy status to other drugs, medicaments and biological substances; Z91.018 Allergy to other foods; Z68.26 Body mass index [BMI] 26.0-26.9, adult; Z86.73 Personal history of transient ischemic attack (TIA), and cerebral infarction without residual deficits; I25.2 Old myocardial infarction; Z99.2 Dependence on renal dialysis; Z79.899 Other long term (current) drug therapy; Z79.4 Long term (current) use of insulin; Z79.82 Long term (current) use of aspirin; Z88.1 Allergy status to other antibiotic agents; Z88.9 Allergy status to unspecified drugs, medicaments and biological substances; Z88.2 Allergy status to sulfonamides
CPT/HCPCS: 36415; 71045; 80048; 80053; 80305; 81003; 82150; 82948; 83036; 83605; 83690; 83735; 83880; 84100; 84134; 84436; 84443; 84484; 85025; 85610; 85730; 87040; 87081; 87086; 90732; 90935; 93005; 99285; C1758; J1815; J7030; J7620; P9046